=== PATIENT | female | born 1980 | race Hispanic/Latino ===

== ENCOUNTER 2019-10-20 00:47 | Emergency (ER) | payer BC ==
[2019-10-20] MEDS ORDERED: LIDOCAINE HCL-MPF 1% 2ML VIAL ONE (01:28)
[2019-10-20] MEDS ORDERED: DEXAMETHASONE SOD PHOSPHATE 10MG/ML 1ML VIAL ONE (01:28)
[2019-10-20] MEDS ORDERED: CEFTRIAXONE SODIUM 1 GM ONE (01:28)
[2019-10-20] MEDS ORDERED: ONDANSETRON ODT 4 MG TAB ONE (01:35)
[2019-10-20 01:42] LABS: RAPID GROUP A STREP NEGATIVE (NEGATIVE)
[2019-10-20] MEDS ORDERED: ACETAMINOPHEN 325 MG TAB ONE (02:18)
== END 2019-10-20 02:36 | disposition home or self-care (01) ==
LOC: EDH 00:47
DX: J10.1 Influenza due to other identified influenza virus with other respiratory manifestations (principal)
CPT/HCPCS: 71045; 87804 ×2; 87880; 96372 ×2; 99284; J0696; J1100; J3490

== ENCOUNTER 2020-01-02 06:52 | Emergency (ER) | payer BC ==
[2020-01-02] MEDS ORDERED: ONDANSETRON HCL 4 MG/2 ML VIAL ONE (07:48)
[2020-01-02 07:52] LABS: BASOPHILS % (AUTO) 0.8 % (0.0-5.0); EOSINOPHILS % (AUTO) 1.4 % (0.0-8.0); HEMATOCRIT 27.3 % (36-48); LYMPHOCYTES % (AUTO) 25.9 % (21.0-51.0); MEAN CORPUSCULAR HEMOGLOBIN 22.5 pg (27.0-33.0); MEAN CORPUSCULAR VOLUME 74.8 fL (79-99); MONOCYTES % (AUTO) 6.9 % (3.0-13.0); NEUTROPHILS % (AUTO) 64.7 % (40.0-77.0); PLATELET COUNT (AUTO) 392 K/uL (130-400); RED BLOOD CELL COUNT(AUTO) 3.65 MIL/uL (4.00-5.50); RED CELL DISTRIBUTION WIDTH 16.3 % (11.0-15.5); WHITE BLOOD COUNT (AUTO) 6.2 K/uL (4.8-10.8)
[2020-01-02 07:54] LABS: APPEARANCE,URINE CLEAR (CLEAR); BILIRUBIN,URINE NEGATIVE (NEGATIVE); COLOR,URINE YELLOW (YELLOW); GLUCOSE, URINE (UA) NEGATIVE (NEGATIVE); KETONES,URINE NEGATIVE (NEGATIVE); LEUKOCYTE ESTERASE ,URINE NEGATIVE (NEGATIVE); NITRATE,URINE NEGATIVE (NEGATIVE); OCCULT BLOOD,URINE LARGE (NEGATIVE); PROTEIN,URINE NEGATIVE (NEGATIVE); UROBILINOGEN,URINE 0.2 mg/dL (0.2-1.0)
[2020-01-02 08:18] LABS: CREATININE 0.7 mg/dL (0.5-1.5); POTASSIUM 3.6 mmol/L (3.5-5.1)
[2020-01-02] MEDS ORDERED: SODIUM CHLORIDE 0.9% 1000ML 1,000 ML IV ONE (08:18)
[2020-01-02 08:26] LABS: ALBUMIN 3.2 g/dL (3.5-5.0); BILIRUBIN,TOTAL 0.1 mg/dL (0.2-1.0); TOTAL PROTEIN, SERUM 7.2 g/dL (6.0-8.3)
[2020-01-02] MEDS ORDERED: KETOROLAC TROMETHAMINE 30MG/ML ONE (08:29)
[2020-01-02 08:38] LABS: BACTERIA,URINE Moderate /HPF (None Seen)
== END 2020-01-02 10:36 | disposition home or self-care (01) ==
LOC: EDH 06:52
DX: S34.115A Complete lesion of L5 level of lumbar spinal cord, initial encounter (principal); R10.12 Left upper quadrant pain; D64.9 Anemia, unspecified; E27.8 Other specified disorders of adrenal gland
CPT/HCPCS: 36415; 74176; 80053; 81001; 81025; 82150; 83690; 85025; 87088; 96361; 96374; 96375; 99284; J1885; J2405; J7030

== ENCOUNTER 2020-05-07 06:00 | Emergency (ER) | payer BC, OTHER ==
[2020-05-07] MEDS ORDERED: SODIUM CHLORIDE 0.9% 1000ML 1,000 ML IV ONE ×2 (06:01→06:56)
[2020-05-07 06:31] LABS: BASOPHILS % (AUTO) 0.8 % (0.0-5.0); EOSINOPHILS % (AUTO) 1.2 % (0.0-8.0); LYMPHOCYTES % (AUTO) 26.9 % (21.0-51.0); MEAN CORPUSCULAR HEMOGLOBIN 21.2 pg (27.0-33.0); MEAN CORPUSCULAR HGB CONC 28.9 g/dL (32.0-36.0); MEAN CORPUSCULAR VOLUME 73.3 fL (79-99); NEUTROPHILS % (AUTO) 62.7 % (40.0-77.0); PLATELET COUNT (AUTO) 422 K/uL (130-400); RED BLOOD CELL COUNT(AUTO) 3.82 MIL/uL (4.00-5.50); RED CELL DISTRIBUTION WIDTH 17.9 % (11.0-15.5); WHITE BLOOD COUNT (AUTO) 10.3 K/uL (4.8-10.8)
[2020-05-07 06:39] LABS: CREATININE 0.8 mg/dL (0.5-1.5); POTASSIUM 3.2 mmol/L (3.5-5.1)
[2020-05-07 06:43] LABS: ALBUMIN 3.6 g/dL (3.5-5.0); BILIRUBIN,TOTAL 0.2 mg/dL (0.2-1.0); TOTAL PROTEIN, SERUM 7.3 g/dL (6.0-8.3)
[2020-05-07] MEDS ORDERED: ONDANSETRON HCL 4 MG/2 ML VIAL ONE (06:48)
[2020-05-07] MEDS ORDERED: MORPHINE SULFATE 4 MG/1ML SYG ONE ×2 (06:49→08:51)
[2020-05-07 08:06] LABS: APPEARANCE,URINE Clear (CLEAR); BILIRUBIN,URINE Negative (NEGATIVE); COLOR,URINE Dark Yellow (YELLOW); GLUCOSE, URINE (UA) Negative (NEGATIVE); KETONES,URINE Trace mg/dL (NEGATIVE); LEUKOCYTE ESTERASE ,URINE Negative (NEGATIVE); NITRATE,URINE Negative (NEGATIVE); OCCULT BLOOD,URINE Negative (NEGATIVE); PROTEIN,URINE Negative (NEGATIVE)
[2020-05-07 08:10] LABS: HCG,QUAL RESULT NEGATIVE (NEGATIVE)
[2020-05-07 08:13] LABS: BACTERIA,URINE Few /HPF (None Seen); CALCIUM OXALATE CRYSTALS,UR Few /LPF (None Seen); MUCUS,URINE Moderate LPF (None Seen); RBC,URINE 0-1 /HPF (0-1); SQUAMOUS EPITHELIAL CELL,UR Moderate /HPF (0-2)
== END 2020-05-07 10:04 | disposition home or self-care (01) ==
LOC: EDH 06:00
DX: R10.12 Left upper quadrant pain (principal)
CPT/HCPCS: 36415; 74176; 80053; 81001; 81025; 83690; 84484; 85025; 93005; 96361; 96374; 96375; 96376; 99285; J2270 ×2; J2405; J7030 ×2

== ENCOUNTER → 2020-07-28 | Outpatient (CLI) | payer OTHER ==
[~2020-07-28] MED LIST: PHEN37.591 PO; TOPIRAMATE
== END | disposition home or self-care (01) ==
LOC: RAH 09:30
PROVIDERS: ATTEND Internal Medicine Gastroenterology
DX: R10.13 Epigastric pain (principal)
CPT/HCPCS: 74240

== ENCOUNTER 2020-08-06 11:34 | Emergency (ER) | payer OTHER ==
[2020-08-06 12:11] LABS: BASOPHILS % (AUTO) 0.8 % (0.0-5.0); EOSINOPHILS % (AUTO) 2.9 % (0.0-8.0); HEMATOCRIT 31.9 % (36-48); LYMPHOCYTES % (AUTO) 17.3 % (21.0-51.0); MEAN CORPUSCULAR HEMOGLOBIN 24.3 pg (27.0-33.0); MEAN CORPUSCULAR HGB CONC 31.7 g/dL (32.0-36.0); MEAN CORPUSCULAR VOLUME 76.9 fL (79-99); MONOCYTES % (AUTO) 7.7 % (3.0-13.0); NEUTROPHILS % (AUTO) 70.9 % (40.0-77.0); PLATELET COUNT (AUTO) 405 K/uL (130-400); RED BLOOD CELL COUNT(AUTO) 4.15 MIL/uL (4.00-5.50); RED CELL DISTRIBUTION WIDTH 21.4 % (11.0-15.5); WHITE BLOOD COUNT (AUTO) 9.3 K/uL (4.8-10.8)
[2020-08-06] MEDS ORDERED: MORPHINE SULFATE 4 MG/1ML SYG ONE (12:11)
[2020-08-06] MEDS ORDERED: ONDANSETRON HCL 4 MG/2 ML VIAL ONE (12:11)
[2020-08-06] MEDS ORDERED: SODIUM CHLORIDE 0.9% 1000ML 1,000 ML IV ONE (12:12)
[2020-08-06 12:25] LABS: CREATININE 0.8 mg/dL (0.5-1.5); POTASSIUM 3.6 mmol/L (3.5-5.1)
[2020-08-06 12:30] LABS: ALBUMIN 3.2 g/dL (3.5-5.0); BILIRUBIN,TOTAL 0.2 mg/dL (0.2-1.0); TOTAL PROTEIN, SERUM 7.6 g/dL (6.0-8.3)
[2020-08-06] MEDS ORDERED: IOHEXOL-350 75 ML VIAL IV ONE (12:39)
[2020-08-06 12:56] LABS: APPEARANCE,URINE Cloudy (CLEAR); BILIRUBIN,URINE Negative (NEGATIVE); COLOR,URINE Yellow (YELLOW); GLUCOSE, URINE (UA) Negative (NEGATIVE); KETONES,URINE Trace mg/dL (NEGATIVE); LEUKOCYTE ESTERASE ,URINE Trace (NEGATIVE); NITRATE,URINE Negative (NEGATIVE); OCCULT BLOOD,URINE Negative (NEGATIVE); PROTEIN,URINE Trace mg/dL (NEGATIVE)
[2020-08-06 13:08] LABS: HCG,QUAL RESULT NEGATIVE (NEGATIVE)
[2020-08-06 13:26] LABS: BACTERIA,URINE Rare /HPF (None Seen); MUCUS,URINE Moderate LPF (None Seen); RBC,URINE None Seen /HPF (0-1)
[2020-08-06] MEDS ORDERED: FENTANYL CITRATE PF 50 MCG/1 ML 2ML VIAL ONE (14:21)
[2020-08-06] MEDS ORDERED: LACTULOSE 20 GM/30 ML UDCUP ONE (15:37)
== END 2020-08-06 15:49 | disposition home or self-care (01) ==
LOC: EDH 11:34
DX: K59.00 Constipation, unspecified (principal); K57.30 Diverticulosis of large intestine without perforation or abscess without bleeding; E66.9 Obesity, unspecified; Z68.41 Body mass index [BMI] 40.0-44.9, adult
CPT/HCPCS: 36415; 74177; 80053; 81001; 81025; 83690; 85025; 87088; 96361; 96374; 96375; 99285; J2270; J2405; J3010; J7030; Q9967

== ENCOUNTER 2020-09-18 10:57 | Emergency (ER) | payer OTHER ==
[~2020-09-18 10:57] MED LIST changes: -PHEN37.591 PO; +PHEN37.596 PO
[2020-09-18 12:48] LABS: BASOPHILS % (AUTO) 0.4 % (0.0-5.0); EOSINOPHILS % (AUTO) 0.8 % (0.0-8.0); HEMATOCRIT 30.1 % (36-48); LYMPHOCYTES % (AUTO) 15.2 % (21.0-51.0); MEAN CORPUSCULAR HEMOGLOBIN 23.3 pg (27.0-33.0); MEAN CORPUSCULAR HGB CONC 30.6 g/dL (32.0-36.0); MEAN CORPUSCULAR VOLUME 76.2 fL (79-99); MONOCYTES % (AUTO) 6.8 % (3.0-13.0); NEUTROPHILS % (AUTO) 76.4 % (40.0-77.0); PLATELET COUNT (AUTO) 396 K/uL (130-400); RED BLOOD CELL COUNT(AUTO) 3.95 MIL/uL (4.00-5.50); RED CELL DISTRIBUTION WIDTH 17.1 % (11.0-15.5); WHITE BLOOD COUNT (AUTO) 11.4 K/uL (4.8-10.8)
[2020-09-18 13:14] LABS: ALBUMIN 3.4 g/dL (3.5-5.0); BILIRUBIN,TOTAL 0.2 mg/dL (0.2-1.0); TOTAL PROTEIN, SERUM 7.8 g/dL (6.0-8.3)
[2020-09-18] MEDS ORDERED: ONDANSETRON 4MG INJ ONE (14:05)
[2020-09-18] MEDS ORDERED: KETOROLAC 30MG VIAL (30MG/ML) ONE (14:05)
[2020-09-18 14:06] LABS: APPEARANCE,URINE Clear (CLEAR); BILIRUBIN,URINE Negative (NEGATIVE); COLOR,URINE Yellow (YELLOW); GLUCOSE, URINE (UA) Negative (NEGATIVE); KETONES,URINE Trace mg/dL (NEGATIVE); LEUKOCYTE ESTERASE ,URINE Trace (NEGATIVE); NITRATE,URINE Negative (NEGATIVE); OCCULT BLOOD,URINE Negative (NEGATIVE); PROTEIN,URINE Negative (NEGATIVE)
[2020-09-18] MEDS ORDERED: 0.9%NACL 1000ML 1,000 ML IV ONE (14:06)
[2020-09-18 14:16] LABS: BACTERIA,URINE Few /HPF (None Seen); RBC,URINE 0-1 /HPF (0-1); WBC,URINE 0-1 /HPF (0-1)
[2020-09-18] MEDS ORDERED: IOHEXOL-350 75 ML VIAL IV ONE (15:00)
[2020-09-18] MEDS ORDERED: LEVOFLOXACIN 500 MG TABLET ONE (16:48)
[2020-09-18] MEDS ORDERED: FENTANYL CITRATE PF 50 MCG/1 ML 2ML VIAL ONE (16:49)
[2020-09-18] MEDS ORDERED: 0.9%NACL 50ML 50 ML IV ONE (16:50)
[2020-10-29] MEDS ORDERED: ACET-2247 PO (22:10)
[2020-11-02] MEDS ORDERED: Folic Acid/Vitamin B Comp W-C PO (13:19)
[2020-11-02] MEDS ORDERED: FERR324T4 PO (13:19)
== END 2020-09-18 17:29 | disposition home or self-care (01) ==
LOC: EDH 10:57
DX: K59.00 Constipation, unspecified (principal)
CPT/HCPCS: 36415; 74177; 80053; 81001; 83690; 84702; 85025; 87040 ×2; 96361; 96374; 96375; 99285; J1885; J2405; J3010; J7030; Q9967

== ENCOUNTER 2020-10-02 04:47 | Emergency (ER) | payer OTHER ==
[~2020-10-02 04:47] MED LIST changes: +PHEN37.591 PO; -PHEN37.596 PO
[2020-10-02] MEDS ORDERED: KETOROLAC TROMETHAMINE 30MG/ML ONE (05:35)
[2020-10-02] MEDS ORDERED: TETANUS/DIPHTHERIA TOXOID [ADULT] 0.5 ML VIAL IM ONE (05:51)
[2020-10-02] MEDS ORDERED: CLINDAMYCIN 600 MG/D5% WATER 50 ML IV ONE (05:51)
[2020-10-02 05:54] LABS: BASOPHILS % (AUTO) 0.7 % (0.0-5.0); EOSINOPHILS % (AUTO) 10.9 % (0.0-8.0); HEMATOCRIT 28.5 % (36-48); MEAN CORPUSCULAR HEMOGLOBIN 23.1 pg (27.0-33.0); MEAN CORPUSCULAR HGB CONC 30.2 g/dL (32.0-36.0); MEAN CORPUSCULAR VOLUME 76.6 fL (79-99); MONOCYTES % (AUTO) 6.4 % (3.0-13.0); NEUTROPHILS % (AUTO) 64.6 % (40.0-77.0); PLATELET COUNT (AUTO) 382 K/uL (130-400); RED BLOOD CELL COUNT(AUTO) 3.72 MIL/uL (4.00-5.50); RED CELL DISTRIBUTION WIDTH 16.6 % (11.0-15.5); WHITE BLOOD COUNT (AUTO) 10.4 K/uL (4.8-10.8)
[2020-10-02 06:10] LABS: CREATININE 0.9 mg/dL (0.5-1.5); POTASSIUM 3.7 mmol/L (3.5-5.1)
[2020-10-02 06:14] LABS: ALBUMIN 3.2 g/dL (3.5-5.0); BILIRUBIN,TOTAL 0.2 mg/dL (0.2-1.0); TOTAL PROTEIN, SERUM 7.6 g/dL (6.0-8.3)
== END 2020-10-02 06:42 | disposition home or self-care (01) ==
LOC: EDH 04:47
DX: L73.9 Follicular disorder, unspecified (principal); L03.90 Cellulitis, unspecified; R42 Dizziness and giddiness; R11.0 Nausea
CPT/HCPCS: 36415; 80053; 85025; 90471; 90714; 96365; 96375; 99284; J1885; J3490

== ENCOUNTER 2020-10-27 23:18 | Emergency (ER) | payer OTHER ==
[2020-10-27] MEDS ORDERED: METOCLOPRAMIDE 10 MG/2 ML VIAL ONE (23:58)
[2020-10-27] MEDS ORDERED: FAMOTIDINE/PF 20 MG/2 ML VIAL IV ONE (23:59)
[2020-10-28 00:13] LABS: APPEARANCE,URINE Cloudy (CLEAR); BILIRUBIN,URINE Negative (NEGATIVE); COLOR,URINE Yellow (YELLOW); GLUCOSE, URINE (UA) Negative (NEGATIVE); KETONES,URINE Negative (NEGATIVE); LEUKOCYTE ESTERASE ,URINE Small (NEGATIVE); NITRATE,URINE Negative (NEGATIVE); OCCULT BLOOD,URINE Large (NEGATIVE); PROTEIN,URINE POS 1+ mg/dL (NEGATIVE)
[2020-10-28] MEDS ORDERED: KETOROLAC TROMETHAMINE 30MG/ML ONE (00:26)
[2020-10-28] MEDS ORDERED: SODIUM CHLORIDE 0.9% 1000ML 1,000 ML IV ONE (00:27)
[2020-10-28 00:29] LABS: BASOPHILS % (AUTO) 0.7 % (0.0-5.0); EOSINOPHILS % (AUTO) 1.4 % (0.0-8.0); LYMPHOCYTES % (AUTO) 25.3 % (21.0-51.0); MEAN CORPUSCULAR HEMOGLOBIN 22.7 pg (27.0-33.0); MEAN CORPUSCULAR VOLUME 75.5 fL (79-99); MONOCYTES % (AUTO) 8.3 % (3.0-13.0); NEUTROPHILS % (AUTO) 63.8 % (40.0-77.0); PLATELET COUNT (AUTO) 404 K/uL (130-400); RED BLOOD CELL COUNT(AUTO) 3.84 MIL/uL (4.00-5.50); RED CELL DISTRIBUTION WIDTH 16.9 % (11.0-15.5); WHITE BLOOD COUNT (AUTO) 8.6 K/uL (4.8-10.8)
[2020-10-28] MEDS ORDERED: IOHEXOL-350 75 ML VIAL IV ONE (00:30)
[2020-10-28 00:31] LABS: BACTERIA,URINE Moderate /HPF (None Seen); YEAST,URINE BUDDING Few /HPF (None Seen)
[2020-10-28 00:42] LABS: ALBUMIN 3.1 g/dL (3.5-5.0); BILIRUBIN,TOTAL 0.1 mg/dL (0.2-1.0); CREATININE 0.8 mg/dL (0.5-1.5); POTASSIUM 4.1 mmol/L (3.5-5.1); TOTAL PROTEIN, SERUM 7.5 g/dL (6.0-8.3)
[2020-10-28 01:27] LABS: AMPHET/METH SCREEN,URINE NEGATIVE (NEGATIVE); BARBITURATE SCREEN, URINE NEGATIVE (NEGATIVE); BENZODIAZEPINES SCREEN,URINE NEGATIVE (NEGATIVE); CANNABINOID SCREEN,URINE NEGATIVE (NEGATIVE); COCAINE SCREEN,URINE NEGATIVE (NEGATIVE); OPIATE SCREEN,URINE NEGATIVE (NEGATIVE); PHENCYCLIDINE SCREEN,URINE NEGATIVE (NEGATIVE)
[2020-10-28] MEDS ORDERED: CEPHALEXIN 500 MG CAPSULE ONE (02:10)
[2020-10-28] MEDS ORDERED: FLUCONAZOLE 100 MG TAB ONE (02:10)
[2020-10-29] MEDS ORDERED: ACET-2247 PO (22:10)
== END 2020-10-28 02:23 | disposition home or self-care (01) ==
LOC: EDH 23:18
DX: E86.0 Dehydration (principal); N39.0 Urinary tract infection, site not specified
CPT/HCPCS: 36415; 74177; 80053; 80305; 81001; 81025; 83690; 85025; 87088; 96361; 96374; 96375; 99285; J1885; J2765; J3490; J7030; Q9967

== ENCOUNTER 2020-10-29 11:24 | Inpatient (IN) | payer OTHER ==
[~2020-10-29] VITALS: Ht 162.6 cm; Wt 130.6 kg
[~2020-10-29 11:24] MED LIST changes: -PHEN37.591 PO; +PHEN37.596 PO
[2020-10-29] MEDS ORDERED: DICYCLOMINE 20MG (10MG/ML) AMP IM ONE (12:03)
[2020-10-29] MEDS ORDERED: ONDANSETRON ODT 4MG TAB ONE (12:03)
[2020-10-29 12:26] LABS: BASOPHILS % (AUTO) 0.5 % (0.0-5.0); EOSINOPHILS % (AUTO) 1.2 % (0.0-8.0); HEMATOCRIT 27.9 % (36-48); LYMPHOCYTES % (AUTO) 15.9 % (21.0-51.0); MEAN CORPUSCULAR HEMOGLOBIN 22.7 pg (27.0-33.0); MEAN CORPUSCULAR HGB CONC 29.7 g/dL (32.0-36.0); MEAN CORPUSCULAR VOLUME 76.4 fL (79-99); NEUTROPHILS % (AUTO) 74.1 % (40.0-77.0); PLATELET COUNT (AUTO) 373 K/uL (130-400); RED BLOOD CELL COUNT(AUTO) 3.65 MIL/uL (4.00-5.50); RED CELL DISTRIBUTION WIDTH 16.5 % (11.0-15.5); WHITE BLOOD COUNT (AUTO) 6.6 K/uL (4.8-10.8)
[2020-10-29 12:33] LABS: CREATININE 0.9 mg/dL (0.5-1.5); POTASSIUM 3.7 mmol/L (3.5-5.1)
[2020-10-29 12:37] LABS: BILIRUBIN,TOTAL 0.1 mg/dL (0.2-1.0); TOTAL PROTEIN, SERUM 7.4 g/dL (6.0-8.3)
[2020-10-29 12:41] LABS: APPEARANCE,URINE Turbid (CLEAR); BILIRUBIN,URINE Small (NEGATIVE); COLOR,URINE Red (YELLOW); GLUCOSE, URINE (UA) Negative (NEGATIVE); KETONES,URINE Negative (NEGATIVE); LEUKOCYTE ESTERASE ,URINE Moderate (NEGATIVE); NITRATE,URINE Positive (NEGATIVE); OCCULT BLOOD,URINE Moderate (NEGATIVE); PROTEIN,URINE POS 2+ mg/dL (NEGATIVE); UROBILINOGEN,URINE 0.2 mg/dL (0.2-1.0)
[2020-10-29 13:10] LABS: BACTERIA,URINE Few /HPF (None Seen); RBC,URINE Full Field /HPF (0-1); WBC,URINE 51-100 /HPF (0-1)
[2020-10-29] MEDS ORDERED: CEFTRIAXONE 1G VIAL ONE (13:17)
[2020-10-29] MEDS ORDERED: PHENAZOPYRIDINE HCL 200 MG TABLET ONE (13:18)
[2020-10-29] MEDS ORDERED: 0.9%NACL 50ML 50 ML IV ONE (13:29)
[2020-10-29 14:52] LABS: % IRON SATURATION 5.2 % (22-44)
[2020-10-29 15:03] LABS: AMPHET/METH SCREEN,URINE NEGATIVE (NEGATIVE); BARBITURATE SCREEN, URINE NEGATIVE (NEGATIVE); BENZODIAZEPINES SCREEN,URINE NEGATIVE (NEGATIVE); CANNABINOID SCREEN,URINE NEGATIVE (NEGATIVE); COCAINE SCREEN,URINE NEGATIVE (NEGATIVE); OPIATE SCREEN,URINE NEGATIVE (NEGATIVE); PHENCYCLIDINE SCREEN,URINE NEGATIVE (NEGATIVE)
[2020-10-29] MEDS ORDERED: LORAZEPAM 2 MG/ML 1 ML VIAL ONE (15:27)
[2020-10-29] MEDS ORDERED: THIAMINE HCL 100 MG/ML 2ML VIAL IVP SCH (15:30)
[2020-10-29] MEDS ORDERED: FOLIC ACID 5 MG/ML VIAL IV SCH (15:30)
[2020-10-29] MEDS ORDERED: TRAMADOL HCL 50 MG TABLET ONE (20:08)
[2020-10-29 20:40] VITALS: BP 155/71
[2020-10-29] MEDS: ONDANSETRON 4MG INJ IVP PRN (22:03)
[2020-10-29] MEDS: MORPHINE 2 MG SYG IVP PRN (22:07)
[2020-10-29] MEDS ORDERED: ACET-2247 PO ×2 (22:10)
[2020-10-29] MEDS: ZOSYN 3.375GM+NS 50ML 50 ML IV SCH (22:32)
[2020-10-29] MEDS: LACTATED RINGERS 1000ML 1,000 ML IV SCH (22:32)
[2020-10-30 01:37] VITALS: BP 103/50
[2020-10-30] MEDS: MORPHINE 2 MG SYG IVP PRN ×3 (02:11→12:38)
[2020-10-30 04:51] VITALS: BP 132/72
[2020-10-30 05:45] LABS: BASOPHILS % (AUTO) 0.6 % (0.0-5.0); EOSINOPHILS % (AUTO) 2.7 % (0.0-8.0); HEMATOCRIT 25.7 % (36-48); LYMPHOCYTES % (AUTO) 34.2 % (21.0-51.0); MEAN CORPUSCULAR HEMOGLOBIN 22.8 pg (27.0-33.0); MEAN CORPUSCULAR VOLUME 76.3 fL (79-99); MONOCYTES % (AUTO) 9.3 % (3.0-13.0); NEUTROPHILS % (AUTO) 52.8 % (40.0-77.0); PLATELET COUNT (AUTO) 327 K/uL (130-400); RED BLOOD CELL COUNT(AUTO) 3.37 MIL/uL (4.00-5.50); RED CELL DISTRIBUTION WIDTH 16.5 % (11.0-15.5); WHITE BLOOD COUNT (AUTO) 6.8 K/uL (4.8-10.8)
[2020-10-30 06:17] LABS: CREATININE 0.6 mg/dL (0.5-1.5); MAGNESIUM 1.8 mg/dL (1.80-2.40); POTASSIUM 3.6 mmol/L (3.5-5.1)
[2020-10-30] MEDS: ZOSYN 3.375GM+NS 50ML 50 ML IV SCH ×3 (07:39→21:41)
[2020-10-30 08:40] VITALS: BP 148/75
[2020-10-30] MEDS ORDERED: THIAMINE HCL 100 MG/ML 2ML VIAL IVP SCH (09:00)
[2020-10-30] MEDS ORDERED: FOLIC ACID 5 MG/ML VIAL IV SCH (09:00)
[2020-10-30 11:00] VITALS: BP 114/59
[2020-10-30] MEDS: ONDANSETRON 4MG INJ IVP PRN (12:02)
[2020-10-30] MEDS: LACTATED RINGERS 1000ML 1,000 ML IV SCH ×2 (12:37→14:00)
[2020-10-30] MEDS ORDERED: ACETAMINOPHEN 325 MG TAB PO PRN (13:45)
[2020-10-30] MEDS ORDERED: COMPOUND IV MISC 1 EACH IVSOLN MISC PRN (14:00)
[2020-10-30] MEDS ORDERED: Vitamin B Complex/Vit C/Folic Acid PO SCH (14:50)
[2020-10-30 16:00] VITALS: BP 107/42
[2020-10-30] MEDS: PANTOPRAZOLE 40 MG/VIAL IVP SCH (16:56)
[2020-10-30] MEDS: IRON SUCROSE COMPLEX 100 MG in 0.9%NACL 50ML 50 ML IV SCH (16:56)
[2020-10-30] MEDS: ACETAMINOPHEN 325 MG TAB PO PRN (16:57)
[2020-10-30] MEDS: HYDROCODONE/ACETAMINOPHEN 5/325 MG TAB PO PRN ×2 (17:04→23:11)
[2020-10-30 19:30] VITALS: BP 140/74
[2020-10-31] VITALS (7 sets, daily range): BP systolic 116–151; BP diastolic 61–76
[2020-10-31] MEDS: ACETAMINOPHEN 325 MG TAB PO PRN ×3 (01:04→16:52)
[2020-10-31] MEDS: LACTATED RINGERS 1000ML 1,000 ML IV SCH (05:22)
[2020-10-31] MEDS: ZOSYN 3.375GM+NS 50ML 50 ML IV SCH ×3 (05:22→22:33)
[2020-10-31 05:23] LABS: BASOPHILS % (AUTO) 0.7 % (0.0-5.0); EOSINOPHILS % (AUTO) 2.3 % (0.0-8.0); HEMATOCRIT 25.9 % (36-48); LYMPHOCYTES % (AUTO) 36.4 % (21.0-51.0); MEAN CORPUSCULAR HEMOGLOBIN 22.8 pg (27.0-33.0); MEAN CORPUSCULAR HGB CONC 30.5 g/dL (32.0-36.0); MEAN CORPUSCULAR VOLUME 74.6 fL (79-99); MONOCYTES % (AUTO) 8.8 % (3.0-13.0); NEUTROPHILS % (AUTO) 51.6 % (40.0-77.0); PLATELET COUNT (AUTO) 355 K/uL (130-400); RED BLOOD CELL COUNT(AUTO) 3.47 MIL/uL (4.00-5.50); RED CELL DISTRIBUTION WIDTH 16.2 % (11.0-15.5); WHITE BLOOD COUNT (AUTO) 6.1 K/uL (4.8-10.8)
[2020-10-31] MEDS: HYDROCODONE/ACETAMINOPHEN 5/325 MG TAB PO PRN ×4 (05:25→21:16)
[2020-10-31 05:43] LABS: ALBUMIN 2.7 g/dL (3.5-5.0); BILIRUBIN,TOTAL 0.1 mg/dL (0.2-1.0); CREATININE 0.6 mg/dL (0.5-1.5); POTASSIUM 3.7 mmol/L (3.5-5.1); TOTAL PROTEIN, SERUM 6.6 g/dL (6.0-8.3)
[2020-10-31] MEDS: PANTOPRAZOLE 40 MG/VIAL IVP SCH (09:28)
[2020-10-31] MEDS: IRON SUCROSE COMPLEX 100 MG in 0.9%NACL 50ML 50 ML IV SCH (09:28)
[2020-10-31] MEDS: Vitamin B Complex/Vit C/Folic Acid PO SCH (09:28)
[2020-10-31] MEDS: ONDANSETRON 4MG INJ IVP PRN (17:00)
[2020-10-31] MEDS ORDERED: PEG 3350/NA SULF,BICARB,CL/KCL 4000 ML SOLN PO ONE (18:45)
[2020-10-31] MEDS ORDERED: MAGNESIUM CITRATE 296 ML SOLUTION PO SCH ×2 (19:15→22:00)
[2020-10-31 23:36] LABS: HEMATOCRIT 27.7 % (36-48)
[2020-11-01] VITALS (19 sets, daily range): BP systolic 91–141; BP diastolic 49–111
[2020-11-01] MEDS: ONDANSETRON 4MG INJ IVP PRN (01:57)
[2020-11-01] MEDS: HYDROCODONE/ACETAMINOPHEN 5/325 MG TAB PO PRN ×2 (02:18→14:42)
[2020-11-01] MEDS: LACTATED RINGERS 1000ML 1,000 ML IV SCH (03:43)
[2020-11-01 05:43] LABS: BASOPHILS % (AUTO) 0.6 % (0.0-5.0); EOSINOPHILS % (AUTO) 1.9 % (0.0-8.0); HEMATOCRIT 26.6 % (36-48); LYMPHOCYTES % (AUTO) 36.6 % (21.0-51.0); MEAN CORPUSCULAR HEMOGLOBIN 22.3 pg (27.0-33.0); MEAN CORPUSCULAR HGB CONC 28.9 g/dL (32.0-36.0); MEAN CORPUSCULAR VOLUME 76.9 fL (79-99); MONOCYTES % (AUTO) 9.7 % (3.0-13.0); NEUTROPHILS % (AUTO) 50.7 % (40.0-77.0); PLATELET COUNT (AUTO) 355 K/uL (130-400); RED BLOOD CELL COUNT(AUTO) 3.46 MIL/uL (4.00-5.50); RED CELL DISTRIBUTION WIDTH 16.6 % (11.0-15.5); WHITE BLOOD COUNT (AUTO) 6.2 K/uL (4.8-10.8)
[2020-11-01 06:07] LABS: ALBUMIN 2.8 g/dL (3.5-5.0); BILIRUBIN,TOTAL 0.1 mg/dL (0.2-1.0); CREATININE 0.6 mg/dL (0.5-1.5); POTASSIUM 3.6 mmol/L (3.5-5.1); TOTAL PROTEIN, SERUM 6.8 g/dL (6.0-8.3)
[2020-11-01] MEDS: ZOSYN 3.375GM+NS 50ML 50 ML IV SCH ×3 (06:15→21:45)
[2020-11-01] MEDS ORDERED: KETOROLAC 30MG VIAL (30MG/ML) IV SCH (08:15)
[2020-11-01] MEDS: PANTOPRAZOLE 40 MG/VIAL IVP SCH (08:30)
[2020-11-01] MEDS: IRON SUCROSE COMPLEX 100 MG in 0.9%NACL 50ML 50 ML IV SCH (08:30)
[2020-11-01 11:21] LABS: HEMATOCRIT 26.5 % (36-48)
[2020-11-01] MEDS ORDERED: PROPOFOL 1000 MG/100 ML 200 ML IV ONE (11:38)
[2020-11-01] MEDS ORDERED: LIDOCAINE HCL-MPF 2% 5ML VIAL ONE (11:38)
[2020-11-01] MEDS ORDERED: SUCCINYLCHOLINE 200MG/10ML SYR ONE (11:38)
[2020-11-01] MEDS ORDERED: FENTANYL CITRATE PF 50 MCG/1 ML 2ML VIAL ONE (11:50)
[2020-11-01] MEDS: Vitamin B Complex/Vit C/Folic Acid PO SCH (14:44)
[2020-11-01 18:09] LABS: HEMATOCRIT 27.7 % (36-48)
[2020-11-02 03:44] VITALS: BP 120/64
[2020-11-02 05:00] LABS: BASOPHILS % (AUTO) 0.7 % (0.0-5.0); EOSINOPHILS % (AUTO) 3.2 % (0.0-8.0); HEMATOCRIT 25.5 % (36-48); LYMPHOCYTES % (AUTO) 32.5 % (21.0-51.0); MEAN CORPUSCULAR HEMOGLOBIN 22.7 pg (27.0-33.0); MEAN CORPUSCULAR HGB CONC 29.4 g/dL (32.0-36.0); MONOCYTES % (AUTO) 12.3 % (3.0-13.0); NEUTROPHILS % (AUTO) 50.8 % (40.0-77.0); PLATELET COUNT (AUTO) 339 K/uL (130-400); RED BLOOD CELL COUNT(AUTO) 3.31 MIL/uL (4.00-5.50); RED CELL DISTRIBUTION WIDTH 16.9 % (11.0-15.5); WHITE BLOOD COUNT (AUTO) 5.9 K/uL (4.8-10.8)
[2020-11-02 05:19] LABS: ALBUMIN 2.6 g/dL (3.5-5.0); BILIRUBIN,TOTAL 0.2 mg/dL (0.2-1.0); CREATININE 0.5 mg/dL (0.5-1.5); POTASSIUM 3.7 mmol/L (3.5-5.1); TOTAL PROTEIN, SERUM 6.2 g/dL (6.0-8.3)
[2020-11-02] MEDS: ZOSYN 3.375GM+NS 50ML 50 ML IV SCH ×2 (06:09→12:52)
[2020-11-02 07:20] VITALS: BP 128/63
[2020-11-02] MEDS: PANTOPRAZOLE 40 MG/VIAL IVP SCH (08:27)
[2020-11-02] MEDS: Vitamin B Complex/Vit C/Folic Acid PO SCH (08:27)
[2020-11-02] MEDS: IRON SUCROSE COMPLEX 100 MG in 0.9%NACL 50ML 50 ML IV SCH (08:28)
[2020-11-02 11:30] VITALS: BP 157/85
[2020-11-02] MEDS ORDERED: FERROUS SULFATE 325 MG TABLET.DR PO SCH (12:45)
[2020-11-02] MEDS: LACTATED RINGERS 1000ML 1,000 ML IV SCH (12:50)
[2020-11-02] MEDS ORDERED: FERR324T4 PO ×2 (13:19)
[2020-11-02] MEDS ORDERED: Folic Acid/Vitamin B Comp W-C PO ×2 (13:19)
== END 2020-11-02 14:55 | disposition home or self-care (01) | DRG 372 ==
LOC: EDH 11:24 → OBSVTOIN 14:21 → EDHIP 14:21 → 3CH 20:47
PROVIDERS: ADMIT Internal Medicine; ATTEND Internal Medicine
PROC: 0DB68ZX Excision of Stomach, Via Natural or Artificial Opening Endoscopic, Diagnostic (ICD-10-PCS; principal; 2020-11-01)
PROC: 0DBK8ZZ Excision of Ascending Colon, Via Natural or Artificial Opening Endoscopic (ICD-10-PCS; 2020-11-01)
DX: A04.9 Bacterial intestinal infection, unspecified (principal); N39.0 Urinary tract infection, site not specified; Z68.42 Body mass index [BMI] 45.0-49.9, adult; K63.5 Polyp of colon; K29.70 Gastritis, unspecified, without bleeding; E86.0 Dehydration; D64.9 Anemia, unspecified; E66.01 Morbid (severe) obesity due to excess calories; B96.20 Unspecified Escherichia coli [E. coli] as the cause of diseases classified elsewhere; Z85.528 Personal history of other malignant neoplasm of kidney; Z90.5 Acquired absence of kidney; Z98.0 Intestinal bypass and anastomosis status; Z90.49 Acquired absence of other specified parts of digestive tract; Z98.84 Bariatric surgery status; Z83.3 Family history of diabetes mellitus; Z80.0 Family history of malignant neoplasm of digestive organs; Z82.49 Family history of ischemic heart disease and other diseases of the circulatory system
CPT/HCPCS: 36415; 43239; 45385; 74177; 80048; 80053; 80305; 81001; 81025; 82150; 82270; 83540; 83550; 83605; 83690; 83735; 84145; 84443; 85014; 85018; 85025; 86850; 86900; 86901; 87040; 87088; 93005; 96361; 96374; 96375; 99291; A4606; C9113; G0378; J0330; J0500; J0696; J1756; J1885; J2060; J2405; J2543; J2704; J2765; J3010; J3411; J3490; J7030; J7120; Q9967